=== PATIENT | female | born 1960 | race African-American/Black ===

== ENCOUNTER 2016-09-24 22:06 | Emergency (ER) | payer OTHER ==
[~2016-09-24] VITALS: Ht 167.6 cm; Wt 102.1 kg
[~2016-09-24 22:06] MED LIST: ATENOLOL50 M1 PO; CARAFATE100 MG/ML PO; METOPROLOL TART50 MG PO; OMEPRAZOLE20 MG PO
[2016-09-24 22:41] LABS: EOSINOPHIL (%) 3.8 % (0-5); EOSINOPHIL COUNT 0.3 K/uL (0-0.3); HEMATOCRIT 39.9 % (36.0-46.0); IMMATURE GRANULOCYTE (%) 0.4 % (0.0-0.7); INSTRUMENT ABS NEUTROPHIL CT 3.2 K/uL; LYMPHOCYTE COUNT 3.9 K/uL (1.0-2.8); MCH 28.1 PG (29.0-34.0); MCHC 32.3 G/DL (30.0-36.0); MCV 86.9 FL (83-99); MEAN PLAT.VOLUME 10.6 uM^3 (9.5-12.4); MONOCYTE (%) 6.8 % (3-12); MONOCYTE COUNT 0.5 K/uL (0-0.8); NEUTROPHIL (%) 40.1 % (45-76); NEUTROPHIL COUNT 3.2 K/uL (1.8-6.4); PLATELET COUNT 270 K/uL (156-360); RBC DIS.WIDTH-CV 12.6 % (11.8-14.6); RBC DIS.WIDTH-SD 39.8 % (39-53); RED BLOOD COUNT 4.59 M/uL (3.80-5.20)
[2016-09-24 23:00] LABS: CHLORIDE 103 mEq/L (99-109); POTASSIUM 3.5 mEq/L (3.7-5.4); SODIUM 139 mEq/L (136-147)
[2016-09-24 23:01] LABS: MAGNESIUM 2.2 mg/dL (1.3-2.7)
[2016-09-24 23:02] LABS: GLUCOSE 186 mg/dL (70-99)
[2016-09-24 23:03] LABS: ANION GAP 9 MEQ/L (2-14)
[2016-09-24 23:04] LABS: TOTAL BILIRUBIN 0.2 mg/dL (0.0-1.0); TROP-I INTERPRETATION NEGATIVE; TROPONIN-I < 0.01 ng/mL (0.0-0.30)
[2016-09-24 23:06] LABS: ALKALINE PHOSPHATASE 102 IU/L (3-129); GFR ESTIMATE (CALCULATED) > 59 mL/min/
[2016-09-24 23:07] LABS: UREA NITROGEN (BUN) 21 mg/dL (9-23)
[2016-09-25 00:14] VITALS: BP 118/74
== END 2016-09-25 00:18 | disposition home or self-care (01) ==
LOC: EME 22:06
PROVIDERS: Emergency Medicine
DX: I47.1 Supraventricular tachycardia (principal); I10 Essential (primary) hypertension
CPT/HCPCS: 71010; 80053; 83735; 84484; 85025; 93005; 99281; 99285; J0153; J7030

== ENCOUNTER 2017-03-26 00:53 | Emergency (ER) | payer OTHER ==
[~2017-03-26] VITALS: Ht 167.6 cm; Wt 99.6 kg
[2017-03-26 01:31] LABS: MCH 28.9 PG (29.0-34.0); MCHC 33.3 G/DL (30.0-36.0); MCV 86.7 FL (83-99); MEAN PLAT.VOLUME 10.5 uM^3 (9.5-12.4); PLATELET COUNT 252 K/uL (156-360); RBC DIS.WIDTH-CV 12.6 % (11.8-14.6); RBC DIS.WIDTH-SD 40.2 % (39-53); WHITE BLOOD COUNT 7.5 K/uL (4.1-10.2)
[2017-03-26 02:06] LABS: CHLORIDE 104 mEq/L (99-109); POTASSIUM 3.6 mEq/L (3.7-5.4); SODIUM 145 mEq/L (136-147)
[2017-03-26 02:08] LABS: GLUCOSE 128 mg/dL (70-99)
[2017-03-26 02:11] LABS: TROP-I INTERPRETATION NEGATIVE; TROPONIN-I < 0.01 ng/mL (0.0-0.30)
[2017-03-26 02:12] LABS: ANION GAP 13 MEQ/L (2-14); GFR ESTIMATE (CALCULATED) > 59 mL/min/
[2017-03-26 02:13] LABS: UREA NITROGEN (BUN) 20 mg/dL (9-23)
[2017-03-26 02:27] VITALS: BP 104/65
== END 2017-03-26 02:30 | disposition home or self-care (01) ==
LOC: EME 00:53
PROVIDERS: Emergency Medicine
DX: I47.1 Supraventricular tachycardia (principal); I10 Essential (primary) hypertension; Z88.0 Allergy status to penicillin; Z88.8 Allergy status to other drugs, medicaments and biological substances
CPT/HCPCS: 80048; 84439; 84443; 84484; 85027; 93005; 99281; 99285; J0153; J7030